=== PATIENT | male | born 1980 | race Caucasian/White ===

== ENCOUNTER 2020-10-27 15:49 | Observation (INO) ==
[2020-10-27 16:38] LABS: Basophils # 0.1 K/mcL (0.0-0.2); Basophils % 0.7 %; Eosinophils # 0.1 K/mcL (0.0-0.6); Eosinophils % 1.3 %; Hematocrit 50.2 % (37.5-50.1); Hemoglobin 15.7 g/dL (12.9-16.9); Immature Granulocytes % 0.3 % (0-4); Lymphocytes # 1.8 K/mcL (0.6-4.6); Lymphocytes % 17.3 %; Mean Corpuscular HGB Conc 31.3 g/dL (31.6-35.5); Mean Corpuscular Hemoglobin 30.3 pg (28.0-33.3); Mean Corpuscular Volume 96.7 fL (83.0-100.0); Mean Platelet Volume 10.2 fL (9.4-12.4); Monocytes # 0.9 K/mcL (0.0-1.3); Monocytes % 8.7 %; Neutrophils # 7.4 K/mcL (1.6-8.9); Nucleated Red Blood Cells 0.3 /100 WBC (0); Platelet Count 186 K/mcL (140-400); Red Blood Count 5.19 M/mcL (4.19-5.50); Segmented Neutrophils % 71.7 %; White Blood Count 10.3 K/mcL (4.3-11.1)
[2020-10-27 17:12] LABS: Alanine Aminotransferase 22 Units/L (7-52); Albumin 3.7 g/dL (3.5-5.7); Albumin/Globulin Ratio 1.1 (1.1-2.2); Alkaline Phosphatase 95 Units/L (34-104); Aspartate Amino Transferase 17 Units/L (13-39); BUN/Creatinine Ratio 13 (6-26); Bilirubin,Direct 0.1 mg/dL (0.0-0.2); Bilirubin,Indirect 0.3 mg/dL (0.0-1.0); Bilirubin,Total 0.4 mg/dL (0.3-1.0); Blood Urea Nitrogen 12 mg/dL (6-20); Calcium 8.9 mg/dL (8.6-10.3); Carbon Dioxide 32 mEq/L (23-29); Chloride 99 mEq/L (98-107); Globulin 3.3 g/dL (2.4-3.5); Glucose 124 mg/dL (70-105); Osmolality,Calculated 283 (280-300); Potassium 4.2 mEq/L (3.5-5.1); Sodium 136 mEq/L (136-145); Troponin I 0.05 ng/mL (< 0.04); eGFR For African Americans > 60 (> 60); eGFR For Non-African Americans > 60 (> 60)
[2020-10-27] MEDS ORDERED: Aspirin 81 MG TAB.CHEW PO ONE (17:14)
[2020-10-27] MEDS ORDERED: methylPREDNISolone 125 MG/2 ML VIAL IVP ONE (17:15)
[2020-10-27] MEDS ORDERED: Ipratropium/Albuterol Neb 3 ML IH ONE (17:15)
[2020-10-27] MEDS ORDERED: Isovue-370 500 ML BOTTLE IVP ONE (17:16)
[2020-10-27 17:34] LABS: Adenovirus Not Detected (Not Detect); Bordetella Pertussis Not Detected (Not Detect); Chlamydophila pneumoniae Not Detected (Not Detect); Coronavirus 229E Not Detected (Not Detect); Coronavirus HKU1 Not Detected (Not Detect); Coronavirus NL63 Not Detected (Not Detect); Coronavirus OC43 Not Detected (Not Detect); Human Metapneumovirus Not Detected (Not Detect); Human Rhinovirus/Enterovirus DETECTED (Not Detect); Influenza A Subtype 2009 H1 Not Detected (Not Detect); Influenza B Not Detected (Not Detect); Mycoplasma pneumoniae Not Detected (Not Detect); Parainfluenza Virus 1 Not Detected (Not Detect); Parainfluenza Virus 2 Not Detected (Not Detect); Parainfluenza Virus 3 Not Detected (Not Detect); Parainfluenza Virus 4 Not Detected (Not Detect); Respiratory Syncytial Virus Not Detected (Not Detect); SARS-CoV-2 Not Detected (Not Detect)
[2020-10-27] MEDS ORDERED: Naloxone 0.4 MG/ML INJ IVP PRN (21:12)
[2020-10-27] MEDS ORDERED: Ondansetron 4 MG/2 ML VIAL IVP PRN (21:19)
[2020-10-27] MEDS ORDERED: *HR* HYDROcodone/Acet 5/325 mg TABLET PO PRN (21:19)
[2020-10-27] MEDS ORDERED: Melatonin 3 MG TABLET PO PRN (21:19)
[2020-10-27] MEDS ORDERED: *HR* OxyCODONE Immed Rel 5 MG TABLET PO PRN (21:19)
[2020-10-27] MEDS ORDERED: Acetaminophen 325 MG TABLET PO PRN (21:19)
[2020-10-27] MEDS ORDERED: Ipratropium/Albuterol Neb 3 ML IH PRN (21:30)
[2020-10-27] MEDS: Ipratropium/Albuterol Neb 3 ML IH SCH (22:43)
[2020-10-27] MEDS: MethylPREDNISolone 40 MG/ML VIAL IVP SCH (23:49)
[2020-10-28] MEDS ORDERED: Perflutren Lipid Microsphere 1.3 ML in 0.9 % Sodium Chloride 8.7 ML IVP PRN (03:26)
[2020-10-28] MEDS: Ipratropium/Albuterol Neb 3 ML IH SCH ×6 (04:05→23:51)
[2020-10-28 04:50] LABS: Basophils % 0.2 %; Hematocrit 51.5 % (37.5-50.1); Hemoglobin 16.6 g/dL (12.9-16.9); Immature Granulocytes % 0.4 % (0-4); Lymphocytes # 0.5 K/mcL (0.6-4.6); Lymphocytes % 4.9 %; Mean Corpuscular HGB Conc 32.2 g/dL (31.6-35.5); Mean Corpuscular Hemoglobin 31.2 pg (28.0-33.3); Mean Corpuscular Volume 96.8 fL (83.0-100.0); Mean Platelet Volume 10.6 fL (9.4-12.4); Monocytes # 0.1 K/mcL (0.0-1.3); Neutrophils # 9.6 K/mcL (1.6-8.9); Nucleated Red Blood Cells 0.2 /100 WBC (0); Platelet Count 208 K/mcL (140-400); Red Blood Count 5.32 M/mcL (4.19-5.50); Segmented Neutrophils % 93.5 %; White Blood Count 10.3 K/mcL (4.3-11.1)
[2020-10-28 04:56] LABS: INR 1.2; Prothrombin Time 13.4 Seconds (9.4-12.1)
[2020-10-28 05:06] LABS: Alanine Aminotransferase 21 Units/L (7-52); Albumin/Globulin Ratio 1.3 (1.1-2.2); Alkaline Phosphatase 109 Units/L (34-104); Aspartate Amino Transferase 16 Units/L (13-39); BUN/Creatinine Ratio 13 (6-26); Bilirubin,Total 0.4 mg/dL (0.3-1.0); Blood Urea Nitrogen 13 mg/dL (6-20); Calcium 8.9 mg/dL (8.6-10.3); Carbon Dioxide 33 mEq/L (23-29); Chloride 97 mEq/L (98-107); Chol/HDL Ratio 6.9 (0-4.9); Cholesterol 220 mg/dL (< 200); Globulin 3.2 g/dL (2.4-3.5); Glucose 275 mg/dL (70-105); HDL Cholesterol 32 mg/dL (40-59); LDL Cholesterol,Calculated 172 mg/dL (< 100); Magnesium 2.1 mg/dL (1.6-2.6); Osmolality,Calculated 290 (280-300); Potassium 5.2 mEq/L (3.5-5.1); Sodium 135 mEq/L (136-145); Total Protein 7.2 g/dL (6.4-8.9); Triglycerides 78 mg/dL (< 150); eGFR For African Americans > 60 (> 60); eGFR For Non-African Americans > 60 (> 60)
[2020-10-28 05:31] LABS: Platelet Estimate Normal (Normal); Reactive Lymphocytes Present (Not Present)
[2020-10-28] MEDS ORDERED: Saliva Stimulant 44.3ml BOTTLE PO PRN (08:11)
[2020-10-28] MEDS ORDERED: Artificial Tears SOLN 15 ML BOTTLE BOTH EYES PRN (08:11)
[2020-10-28] MEDS ORDERED: Saline Nasal Spray 44 ML BOTTLE NS PRN (08:11)
[2020-10-28] MEDS ORDERED: Chloraseptic Spray 177 ML BOTTLE MM PRN (08:11)
[2020-10-28] MEDS ORDERED: Calcium Gluconate 1gm/50mL 1 GM/50 ML BAG IVPB ONE (08:13)
[2020-10-28] MEDS ORDERED: Insulin Human Regular 10 UNIT in 0.9 % Sodium Chloride 10 ML IV ONE (08:13)
[2020-10-28] MEDS ORDERED: *HR* Dextrose 50 % in Water (Vial) 50 ML VIAL IVP ONE (08:13)
[2020-10-28 09:04] LABS: Estimated Average Glucose 160 mg/dl; Hemoglobin A1C 7.2 %
[2020-10-28] MEDS: MethylPREDNISolone 40 MG/ML VIAL IVP SCH ×2 (09:31→17:28)
[2020-10-28] MEDS: Multivit/Ca/Min/Fe/FA 1 TAB TABLET PO SCH (09:32)
[2020-10-28] MEDS: Chlorhexidine Rinse 15 ML MOUTHWASH MM SCH ×2 (09:33→20:58)
[2020-10-28] MEDS: Azithromycin 250 MG TABLET PO SCH (09:33)
[2020-10-28] MEDS: Aspirin 81 MG TAB.CHEW PO SCH (09:33)
[2020-10-28] MEDS: carvediloL 6.25 MG TABLET PO SCH ×2 (09:48→17:23)
[2020-10-28] MEDS: Budesonide/Formoterol 160/4.5 1 PUFF INH IH SCH ×2 (10:54→19:32)
[2020-10-28] MEDS: Insulin LISPRO 300 UNITS/3 ML VIAL SUBQ SCH ×2 (12:27→17:27)
[2020-10-28] MEDS: *HR* Heparin 5,000 UNIT/ML VIAL SQ SCH ×2 (14:47→20:57)
[2020-10-28] MEDS ORDERED: carvediloL 6.25 MG TABLET PO SCH (17:00)
[2020-10-28] MEDS ORDERED: Insulin LISPRO 300 UNITS/3 ML VIAL SUBQ SCH (21:00)
[2020-10-29] MEDS: MethylPREDNISolone 40 MG/ML VIAL IVP SCH ×2 (01:26→09:44)
[2020-10-29 02:06] LABS: Hematocrit 48.8 % (37.5-50.1); Hemoglobin 15.9 g/dL (12.9-16.9); Mean Corpuscular HGB Conc 32.6 g/dL (31.6-35.5); Mean Corpuscular Hemoglobin 31.1 pg (28.0-33.3); Mean Corpuscular Volume 95.5 fL (83.0-100.0); Mean Platelet Volume 10.2 fL (9.4-12.4); Platelet Count 224 K/mcL (140-400); Red Blood Count 5.11 M/mcL (4.19-5.50); Red Cell Distribution Width 14.1 % (11.5-14.5)
[2020-10-29 02:07] LABS: White Blood Count 19.7 K/mcL (4.3-11.1)
[2020-10-29 02:25] LABS: BUN/Creatinine Ratio 20 (6-26); Blood Urea Nitrogen 20 mg/dL (6-20); Calcium 8.8 mg/dL (8.6-10.3); Carbon Dioxide 32 mEq/L (23-29); Chloride 99 mEq/L (98-107); Glucose 191 mg/dL (70-105); Magnesium 2.1 mg/dL (1.6-2.6); Osmolality,Calculated 290 (280-300); Phosphorous 2.2 mg/dL (2.7-4.5); Potassium 4.4 mEq/L (3.5-5.1); Sodium 136 mEq/L (136-145); eGFR For African Americans > 60 (> 60); eGFR For Non-African Americans > 60 (> 60)
[2020-10-29] MEDS: Ipratropium/Albuterol Neb 3 ML IH SCH ×4 (04:18→16:17)
[2020-10-29] MEDS: *HR* Heparin 5,000 UNIT/ML VIAL SQ SCH ×2 (05:51→13:41)
[2020-10-29] MEDS: Budesonide/Formoterol 160/4.5 1 PUFF INH IH SCH (07:37)
[2020-10-29] MEDS ORDERED: lisinopriL 20 MG TABLET PO SCH (09:00)
[2020-10-29] MEDS: carvediloL 6.25 MG TABLET PO SCH (09:44)
[2020-10-29] MEDS: Aspirin 81 MG TAB.CHEW PO SCH (09:44)
[2020-10-29] MEDS: Multivit/Ca/Min/Fe/FA 1 TAB TABLET PO SCH (09:44)
[2020-10-29] MEDS: Insulin LISPRO 300 UNITS/3 ML VIAL SUBQ SCH ×2 (09:45→14:05)
[2020-10-29] MEDS: Azithromycin 250 MG TABLET PO SCH (09:45)
[2020-10-29 11:01] VITALS: BP 148/82
== END 2020-10-29 16:20 | disposition home or self-care (01) ==
LOC: 2NENU 15:49 → EMEROOARM 15:49 → SUATTDRO 20:00 → 2NENU 21:00
PROVIDERS: ADMIT Internal Medicine; ATTEND Internal Medicine